=== PATIENT | female | born 1990 | race Caucasian/White ===

== ENCOUNTER 2018-05-18 11:53 | Inpatient (IN) | payer BC ==
[2018-05-18] MEDS ORDERED: Nalbuphine 20 MG/ML 1 ML Syringe IVPUSH PRN (12:45)
[2018-05-18] MEDS ORDERED: Oxytocin/Lactated Ringers 10 UNIT/1,000 ML BAG IV SCH ×2 (12:45→13:00)
[2018-05-18] MEDS ORDERED: Sodium Chloride 0.9% 10 ML Syringe FLUSH PRN (12:45)
[2018-05-18] MEDS ORDERED: Ondansetron 4 MG/2 ML SDV IVPUSH PRN (12:45)
[2018-05-18] MEDS: Lactated Ringers 1,000 ML IV SCH ×2 (14:12→17:34)
[2018-05-18] MEDS ORDERED: fentaNYL 100 MCG/2 ML SDV EPIDUR PRN (17:22)
[2018-05-18] MEDS ORDERED: ePHEDrine 50 MG/ML SDV IVPUSH PRN (17:22)
[2018-05-18] MEDS ORDERED: diphenhydrAMINE 50 MG/ML SDV IVPUSH PRN (17:22)
[2018-05-18] MEDS ORDERED: fentaNYL 100 MCG/2 ML SDV ONE (17:29)
[2018-05-18] MEDS ORDERED: fentaNYL/Bupivacaine-NS 2 MCG/ML-0.125%/PF 100 ML Bag EPIDUR SCH (17:30)
--- NOTE | 2018-05-18 17:56 | PCM.PREANE ---
Preanesthetic Assessment - Anesthesia/Transfusion/Family Hx Anesthesia History: Prior Anesthesia Without Reaction Family History of Anesthesia Reaction: No Transfusion History: No Prior Transfusion(s) - Review of Systems General: Fatigue Pulmonary: No Symptoms Cardiovascular: No Symptoms Gastrointestinal: Abdominal Pain (LABOR CRAMPING) Neurological: No Symptoms Other: Reports: None - Physical Assessment Pulse: 105 O2 Sat by Pulse Oximetry: 97 Respiratory Rate: 16 Blood Pressure: 110/85 Temperature: 36.3 C Vital Signs: Last Vital Signs Temp 37.4 C 05/18/18 12:45 Pulse 105 H 05/18/18 12:45 Resp 16 05/18/18 12:45 BP 110/85 05/18/18 12:45 Pulse Ox Height: 1.73 m Weight: 87.997 kg ASA Class: 2 Mental Status: Alert & Oriented x3 Airway Class: Mallampati = 1 Dentition: Reports: Normal Dentition Thyro-Mental Finger Breadths: 3 Mouth Opening Finger Breadths: 3 ROM/Head Extension: Full Lungs: Clear to Auscultation, Normal Respiratory Effort Cardiovascular: Regular Rate, Regular Rhythm - Lab Values: Laboratory Last Values WBC 8.63 K/mm3 (3.98-10.04) 05/18/18 12:59 RBC 4.12 M/mm3 (3.98-5.22) 05/18/18 12:59 Hgb 11.9 gm/L (11.2-15.7) 05/18/18 12:59 Hct 36.2 % (34.1-44.9) 05/18/18 12:59 MCV 87.9 fl (79.4-94.8) 05/18/18 12:59 MCH 28.9 pg (25.6-32.2) 05/18/18 12:59 MCHC 32.9 g/dl (32.2-35.5) 05/18/18 12:59 RDW Std Deviation 38.8 fL (36.4-46.3) 05/18/18 12:59 Plt Count 251 K/mm3 (182-369) 05/18/18 12:59 MPV 10.4 fl (9.4-12.3) 05/18/18 12:59 RPR Non-reactive (NONREACTIVE) 05/18/18 12:59 - Allergies Allergies/Adverse Reactions: Allergies Allergy/AdvReac Type Severity Reaction Status Date / Time No Known Allergies Allergy Verified 04/26/18 15:48 - Anesthesia Plan Pre-Op Medication Ordered: None - Acknowledgements Anesthesia Type Planned: Epidural Pt an Appropriate Candidate for the Planned Anesthesia: Yes Alternatives and Risks of Anesthesia Discussed w Pt/Guardian: Yes Pt/Guardian Understands and Agrees with Anesthesia Plan: Yes PreAnesthesia Questionnaire - Past Health History Medical/Surgical History: Denies Medical/Surgical History [employer] History: Reports: Polycystic Ovaries - Past Surgical History GI Surgical History: Reports: Other (See Below) Other GI Surgeries/Procedures: gastric sleeve surgery 1 year ago. - SUBSTANCE USE Smoking Status *Q: Never Smoker Second Hand Smoke Exposure: No Recreational Drug Use History: No - HOME MEDS Home Medications: Home Meds PNV95/Ferrous Fumarate/FA [ Tablet] 1 each PO DAILY 05/18/18 [History] - CURRENT (IN HOUSE) MEDS Current Meds: Current Medications Diphenhydramine HCl (Benadryl) 25 mg IVPUSH Q6H PRN PRN Reason: Itching Ephedrine Sulfate (Ephedrine Sulfate) 5 mg IVPUSH ASDIRECTED PRN PRN Reason: HYPOTENTSION Fentanyl (Sublimaze) 100 mcg EPIDUR Q3H PRN PRN Reason: Pain Last Admin: 05/18/18 17:49 Dose: 100 mcg Fentanyl/Bupivacaine HCl (Abiyeejf-Tpjrg-Cc 2 Mcg/Ml-0.125%) 100 ml EPIDUR ASDIRECTED DAYSI Last Admin: 05/18/18 17:50 Dose: 100 ml Lactated Ringer's (Ringers, Lactated) 1,000 mls @ 100 mls/hr IV ASDIRECTED DAYSI Last Admin: 05/18/18 17:34 Dose: 100 mls/hr Oxytocin/Lactated Ringer's (Pitocin In Lr 10 Units/1,000 Ml) 10 unit in 1,000 mls @ 500 mls/hr IV .CONTINUOUS DAYSI Oxytocin/Lactated Ringer's (Pitocin In Lr 10 Units/1,000 Ml) 10 unit in 1,000 mls @ 12 mls/hr IV TITRATE DAYSI; Protocol Last Titration: 05/18/18 16:17 Dose: 7 munits/min, 42 mls/hr Nalbuphine HCl (Nubain) 10 mg IVPUSH Q2H PRN PRN Reason: pain Ondansetron HCl (Zofran) 4 mg IVPUSH Q4H PRN PRN Reason: Nausea/Vomiting Sodium Chloride (Saline Flush) 10 ml FLUSH ASDIRECTED PRN PRN Reason: Keep Vein Open Discontinued Medications Fentanyl (Sublimaze) Confirm Administered Dose 100 mcg .ROUTE .AirPlug-MED ONE Stop: 05/18/18 17:30
[2018-05-18] MEDS ORDERED: Bupivacaine 0.25% 10 ML SDV ONE (18:00)
--- NOTE | 2018-05-18 21:14 | PCM.LDHP ---
L&D History of Present Illness - General Date of Service: 05/18/18 Admit Problem/Dx: Patient Status Order with Admit Dx/Problem 05/18/18 12:46 Patient Status [ADT] Routine Admission Diagnosis/Problem Admission Diagnosis/Problem Source of Information: Patient, Old Records - History of Present Illness Introduction:: 28 year old at 39w4d here for elective IOL (also lives remote from hospital ) PNC with myself complicated by recent gastric sleeve - normal labs and growth. Pain Score: 10 Improves with: Reports: None Worsens with: Reports: None Associated Symptoms: Reports: N - Related Data Allergies/Adverse Reactions: Allergies Allergy/AdvReac Type Severity Reaction Status Date / Time No Known Allergies Allergy Verified 04/26/18 15:48 Home Medications: Home Meds PNV95/Ferrous Fumarate/FA [ Tablet] 1 each PO DAILY 05/18/18 [History] Past Medical History - Past Health History Medical/Surgical History: Denies Medical/Surgical History [employer] History: Reports: Polycystic Ovaries - Past Surgical History GI Surgical History: Reports: Other (See Below) Other GI Surgeries/Procedures: gastric sleeve surgery 1 year ago. Social & Family History - Tobacco Use Smoking Status *Q: Never Smoker Second Hand Smoke Exposure: No - Caffeine Use Caffeine Use: Reports: Coffee - Recreational Drug Use Recreational Drug Use: No H&P Review of Systems - Review of Systems: Review Of Systems: See Below General: Reports: No Symptoms HEENT: Reports: No Symptoms Pulmonary: Reports: No Symptoms Cardiovascular: Reports: No Symptoms Gastrointestinal: Reports: No Symptoms Genitourinary: Reports: No Symptoms Musculoskeletal: Reports: No Symptoms Skin: Reports: No Symptoms Psychiatric: Reports: No Symptoms Neurological: Reports: No Symptoms Hematologic/Lymphatic: Reports: No Symptoms Immunologic: Reports: No Symptoms L&D Exam - Exam Exam: See Below - Vital Signs Vital Signs: Last Vital Signs Temp 36.3 C 05/18/18 17:56 Pulse 105 H 05/18/18 17:56 Resp 16 05/18/18 17:56 BP 110/85 05/18/18 17:56 Pulse Ox 97 05/18/18 17:56 Weight: 87.997 kg - OB Specific Contraction Intensity: Irritability Movement: Active Heart Tones: Present Heart Rate (FHR) Variability: Moderate (6-25 bmp) Presentation: Vertex Estimated Weight: 3000 - Albright Score Albright Score Cervix Position: Midposition Albright Score Consistency: Soft Albright Score Effacement: >80% Albright Score Dilation: 3-4 cm Albright Score 's Station: -1 ,0 Albright Score Total: 10 - Exam General: Alert, Oriented HEENT: PERRLA, Conjunctiva Clear, EACs Clear, EOMI, Hearing Intact, Mucosa Moist & Rosa Sanchez, Nares Patent, Normal Nasal Septum, Posterior Pharynx Clear, TMs Clear Neck: Supple, Trachea Midline Lungs: Clear to Auscultation, Normal Respiratory Effort Cardiovascular: Regular Rate, Regular Rhythm GI/Abdominal Exam: Normal Bowel Sounds, Soft, Non-Tender, No Organomegaly, No Distention, No Abnormal Bruit, No Mass, Pelvis Stable Genitourinary: Normal external exam, Normal bimanual exam Back Exam: Normal Inspection, Full Range of Motion Extremities: Normal Inspection, Normal Range of Motion, Non-Tender, No Pedal Edema, Normal Capillary Refill Skin: Warm, Dry, Intact Neurological: Cranial Nerves Intact, Reflexes Equal Bilateral Psychiatric: Alert, Normal Affect, Normal Mood - Patient Data Lab Results Last 24 hrs: Laboratory Results - last 24 hr 05/18/18 05/18/18 Range/Units 12:59 12:59 WBC 8.63 (3.98-10.04) K/mm3 RBC 4.12 (3.98-5.22) M/mm3 Hgb 11.9 (11.2-15.7) gm/L Hct 36.2 (34.1-44.9) % MCV 87.9 (79.4-94.8) fl MCH 28.9 (25.6-32.2) pg MCHC 32.9 (32.2-35.5) g/dl RDW Std Deviation 38.8 (36.4-46.3) fL Plt Count 251 (182-369) K/mm3 MPV 10.4 (9.4-12.3) fl RPR Non-reactive (NONREACTIVE) Result Diagrams: 05/18/18 12:59 Problem List Initiated/Reviewed/Updated: Yes Orders Last 24hrs: Active Orders 24 hr Category Date Time Status Patient Status [ADT] Routine ADT 05/18/18 12:46 Active Activity as Tolerated [RC] PFP Care 05/18/18 12:45 Active Communication Order [RC] ASDIRECTED Care 05/18/18 12:45 Active Communication Order [RC] ASDIRECTED Care 05/18/18 17:22 Active Cooling Warming Measures [RC] ASDIRECTED Care 05/18/18 17:22 Active Heart Tones [RC] ASDIRECTED Care 05/18/18 12:46 Active Non Stress Test [RC] PER UNIT ROUTINE Care 05/18/18 12:45 Active Notify Provider [RC] ASDIRECTED Care 05/18/18 17:22 Active Notify Provider [RC] PFP Care 05/18/18 12:45 Active Notify Provider [RC] PRN Care 05/18/18 12:45 Active Oxygen Therapy [RC] ASDIRECTED Care 05/18/18 17:22 Active Peripheral IV Care [RC] . DIRECTED Care 05/18/18 12:46 Active Pulse Oximetry [RC] ASDIRECTED Care 05/18/18 17:22 Active Verify Patient Consent Obtain [RC] ASDIRECTED Care 05/18/18 17:22 Active Vital Signs [RC] PER UNIT ROUTINE Care 05/18/18 12:45 Active Vital Signs [RC] Q1H Care 05/18/18 17:22 Active Regular Diet [DIET] Diet 05/18/18 Lunch Active Lactated Ringers [Ringers, Lactated] 1,000 ml Med 05/18/18 12:45 Active IV ASDIRECTED Nalbuphine [Nubain] Med 05/18/18 12:45 Active 10 mg IVPUSH Q2H PRN Ondansetron [Zofran] Med 05/18/18 12:45 Active 4 mg IVPUSH Q4H PRN Oxytocin/Lactated Ringers [Pitocin in LR 10 Units/1,000 Med 05/18/18 12:45 Active ML] 10 unit in 1,000 ml IV .CONTINUOUS Oxytocin/Lactated Ringers [Pitocin in LR 10 Units/1,000 Med 05/18/18 13:00 Active ML] 10 unit in 1,000 ml IV TITRATE Sodium Chloride 0.9% [Saline Flush] Med 05/18/18 12:45 Active 10 ml FLUSH ASDIRECTED PRN diphenhydrAMINE [Benadryl] Med 05/18/18 17:22 Active 25 mg IVPUSH Q6H PRN ePHEDrine [ePHEDrine sulfate] Med 05/18/18 17:22 Active 5 mg IVPUSH ASDIRECTED PRN fentaNYL [Sublimaze] Med 05/18/18 17:22 Active 100 mcg EPIDUR Q3H PRN fentaNYL/Bupivacaine/NS/PF [lvzkwCJL-Puzme-EB 2 MCG/ML- Med 05/18/18 17:30 Active 0.125%] 100 ml EPIDUR ASDIRECTED Electronic Heart Tones Ext w TOCO [WOMSER] Oth 05/18/18 12:45 Ordered Routine Electronic Heart Tones Internal [WOMSER] Per Unit Oth 05/18/18 12:45 Ordered Routine Peripheral IV Insertion Adult [OM.PC] Routine Oth 05/18/18 12:45 Ordered Resuscitation Status Routine Resus Stat 05/18/18 12:45 Ordered Medication Orders Diphenhydramine HCl (Benadryl) 25 mg IVPUSH Q6H PRN PRN Reason: Itching Ephedrine Sulfate (Ephedrine Sulfate) 5 mg IVPUSH ASDIRECTED PRN PRN Reason: HYPOTENTSION Fentanyl (Sublimaze) 100 mcg EPIDUR Q3H PRN PRN Reason: Pain Last Admin: 05/18/18 17:49 Dose: 100 mcg Fentanyl/Bupivacaine HCl (Coksropo-Gsnxb-Mb 2 Mcg/Ml-0.125%) 100 ml EPIDUR ASDIRECTED DAYSI Last Admin: 05/18/18 17:50 Dose: 100 ml Lactated Ringer's (Ringers, Lactated) 1,000 mls @ 100 mls/hr IV ASDIRECTED DAYSI Last Admin: 05/18/18 17:34 Dose: 100 mls/hr Infusion: 05/18/18 17:34 Dose: 100 mls/hr Admin: 05/18/18 14:12 Dose: 100 mls/hr Oxytocin/Lactated Ringer's (Pitocin In Lr 10 Units/1,000 Ml) 10 unit in 1,000 mls @ 500 mls/hr IV .CONTINUOUS DAYSI Oxytocin/Lactated Ringer's (Pitocin In Lr 10 Units/1,000 Ml) 10 unit in 1,000 mls @ 12 mls/hr IV TITRATE DAYSI; Protocol Last Titration: 05/18/18 19:12 Dose: 6 munits/min, 36 mls/hr Titration: 05/18/18 18:26 Dose: 5 munits/min, 30 mls/hr Titration: 05/18/18 16:17 Dose: 7 munits/min, 42 mls/hr Titration: 05/18/18 15:48 Dose: 6 munits/min, 36 mls/hr Titration: 05/18/18 15:20 Dose: 5 munits/min, 30 mls/hr Titration: 05/18/18 14:47 Dose: 4 munits/min, 24 mls/hr Admin: 05/18/18 14:13 Dose: 2 munits/min, 12 mls/hr Nalbuphine HCl (Nubain) 10 mg IVPUSH Q2H PRN PRN Reason: pain Ondansetron HCl (Zofran) 4 mg IVPUSH Q4H PRN PRN Reason: Nausea/Vomiting Sodium Chloride (Saline Flush) 10 ml FLUSH ASDIRECTED PRN PRN Reason: Keep Vein Open Assessment/Plan Comment:: Term induction. AROM clear fluid. Pitocin if no regular contractions after AROM Anesthesia per pt request. Anticipate
--- NOTE | 2018-05-18 21:15 | PCM.PNLD ---
Labor Progress Note - VS & Meds Vital Signs: Last Vital Signs Temp 36.3 C 05/18/18 17:56 Pulse 105 H 05/18/18 17:56 Resp 16 05/18/18 17:56 BP 110/85 05/18/18 17:56 Pulse Ox 97 05/18/18 17:56 Active Medications: Current Medications Diphenhydramine HCl (Benadryl) 25 mg IVPUSH Q6H PRN PRN Reason: Itching Ephedrine Sulfate (Ephedrine Sulfate) 5 mg IVPUSH ASDIRECTED PRN PRN Reason: HYPOTENTSION Fentanyl (Sublimaze) 100 mcg EPIDUR Q3H PRN PRN Reason: Pain Last Admin: 05/18/18 17:49 Dose: 100 mcg Fentanyl/Bupivacaine HCl (Bhzkskmd-Ztblj-Fw 2 Mcg/Ml-0.125%) 100 ml EPIDUR ASDIRECTED DAYSI Last Admin: 05/18/18 17:50 Dose: 100 ml Lactated Ringer's (Ringers, Lactated) 1,000 mls @ 100 mls/hr IV ASDIRECTED DAYSI Last Admin: 05/18/18 17:34 Dose: 100 mls/hr Oxytocin/Lactated Ringer's (Pitocin In Lr 10 Units/1,000 Ml) 10 unit in 1,000 mls @ 500 mls/hr IV .CONTINUOUS DAYSI Oxytocin/Lactated Ringer's (Pitocin In Lr 10 Units/1,000 Ml) 10 unit in 1,000 mls @ 12 mls/hr IV TITRATE DAYSI; Protocol Last Titration: 05/18/18 19:12 Dose: 6 munits/min, 36 mls/hr Nalbuphine HCl (Nubain) 10 mg IVPUSH Q2H PRN PRN Reason: pain Ondansetron HCl (Zofran) 4 mg IVPUSH Q4H PRN PRN Reason: Nausea/Vomiting Sodium Chloride (Saline Flush) 10 ml FLUSH ASDIRECTED PRN PRN Reason: Keep Vein Open Discontinued Medications Fentanyl (Sublimaze) Confirm Administered Dose 100 mcg .ROUTE .STK-MED ONE Stop: 05/18/18 17:30 - Uterine Contractions Uterine Monitoring Mode: External [place] Contraction Intensity: Moderate to Strong Uterine Resting Tone: Soft - Monitoring Monitor Mode: External Ultrasound Heart Rate (FHR) Baseline: 145 Heart Rate (FHR) Variability: Moderate (6-25 bmp) Accelerations: Present, 15x15 Decelerations: None Strip Review: Category I - Vaginal Exam Dilation (cm): 4 Effacement (Percent): 100 Station: 1 Cervical Position: Anterior Sterile Vaginal Exam Performed By: Anahi Self - Labor Progress (Free Text) Labor Progress: Patient increasingly uncomfortable. Requesting epidural Good progress
--- NOTE | 2018-05-18 21:19 | PCM.SN ---
- Free Text/Narrative Note: Stage I - Patient presented for induction of labor. AROM clear fluid. Pitocin. Epidural for anesthesia. Progressed to complete with overall reassuring FHT. Stage II - of viable female, weight 7#2oz, APGARS 8/9 at 2052. Head delivered in controlled manner over intact perineum. Body and shoulders followed without difficulty. Baby to maternal abdomen. Positive cry. Cord clamped and cut after approximately 5 minutes. Stage III - of intact placenta, 3vc. Small side wall laceration at hymen repaired with one figure of eight suture of 3-0 vicryl. EBL 200.
[2018-05-18] MEDS ORDERED: Witch Hazel Medicated Pads 40/Jar TOP PRN (21:56)
[2018-05-18] MEDS ORDERED: Benzocaine/Menthol 20%-0.5% Spray 56 GM Canister TOP PRN (21:57)
--- NOTE | 2018-05-19 08:08 | PCM.PNPP ---
- General Info Date of Service: 05/19/18 Subjective Update: day one. Doing great. Minimal pain. Bleeding moderate. Functional Status: Reports: Pain Controlled - Review of Systems General: Reports: No Symptoms HEENT: Reports: No Symptoms Pulmonary: Reports: No Symptoms Cardiovascular: Reports: No Symptoms Gastrointestinal: Reports: No Symptoms Genitourinary: Reports: No Symptoms Musculoskeletal: Reports: No Symptoms Skin: Reports: No Symptoms Neurological: Reports: No Symptoms Psychiatric: Reports: No Symptoms - General Info Date of Service: 05/19/18 - Patient Data Vital Signs - Most Recent: Last Vital Signs Temp 37.2 C 05/18/18 23:57 Pulse 66 05/18/18 23:57 Resp 16 05/18/18 23:57 BP 118/69 05/18/18 23:57 Pulse Ox 98 05/18/18 23:57 Weight - Most Recent: 87.997 kg I&O - Last 24 Hours: Intake & Output 05/18/18 05/19/18 05/19/18 22:59 06:59 14:59 Intake Total 1999 Balance 1999 Lab Results - Last 24 Hours: Laboratory Results - last 24 hr 05/18/18 05/18/18 Range/Units 12:59 12:59 WBC 8.63 (3.98-10.04) K/mm3 RBC 4.12 (3.98-5.22) M/mm3 Hgb 11.9 (11.2-15.7) gm/L Hct 36.2 (34.1-44.9) % MCV 87.9 (79.4-94.8) fl MCH 28.9 (25.6-32.2) pg MCHC 32.9 (32.2-35.5) g/dl RDW Std Deviation 38.8 (36.4-46.3) fL Plt Count 251 (182-369) K/mm3 MPV 10.4 (9.4-12.3) fl RPR Non-reactive (NONREACTIVE) Med Orders - Current: Current Medications Benzocaine/Menthol (Dermoplast Pain Relief [place]) 1 gm TOP ASDIRECTED PRN PRN Reason: Pain Last Admin: 05/18/18 23:07 Dose: 1 can Diphenhydramine HCl (Benadryl) 25 mg IVPUSH Q6H PRN PRN Reason: Itching Ephedrine Sulfate (Ephedrine Sulfate) 5 mg IVPUSH ASDIRECTED PRN PRN Reason: HYPOTENTSION Fentanyl (Sublimaze) 100 mcg EPIDUR Q3H PRN PRN Reason: Pain Last Admin: 05/18/18 17:49 Dose: 100 mcg Fentanyl/Bupivacaine HCl (Olfjppsv-Nsogo-Lk 2 Mcg/Ml-0.125%) 100 ml EPIDUR ASDIRECTED DAYSI Last Admin: 05/18/18 17:50 Dose: 100 ml Lactated Ringer's (Ringers, Lactated) 1,000 mls @ 100 mls/hr IV ASDIRECTED DAYSI Last Admin: 05/18/18 17:34 Dose: 100 mls/hr Oxytocin/Lactated Ringer's (Pitocin In Lr 10 Units/1,000 Ml) 10 unit in 1,000 mls @ 500 mls/hr IV .CONTINUOUS DAYSI Oxytocin/Lactated Ringer's (Pitocin In Lr 10 Units/1,000 Ml) 10 unit in 1,000 mls @ 12 mls/hr IV TITRATE DAYSI; Protocol Last Titration: 05/18/18 19:12 Dose: 6 munits/min, 36 mls/hr Nalbuphine HCl (Nubain) 10 mg IVPUSH Q2H PRN PRN Reason: pain Ondansetron HCl (Zofran) 4 mg IVPUSH Q4H PRN PRN Reason: Nausea/Vomiting Sodium Chloride (Saline Flush) 10 ml FLUSH ASDIRECTED PRN PRN Reason: Keep Vein Open Witch Roro (Tucks) 1 pad TOP ASDIRECTED PRN PRN Reason: Pain Last Admin: 05/18/18 23:07 Dose: 1 bottle Discontinued Medications Fentanyl (Sublimaze) Confirm Administered Dose 100 mcg .ROUTE .STSpinal Restoration-MED ONE Stop: 05/18/18 17:30 - Infant Interaction Infant Disposition, : in Room with Family Support Person: Significant Other - Recovery Exam Fundal Tone: Firm Fundal Level: 1 Fingerbreadths Below Umbilicus Fundal Placement: Midline Lochia Amount: Small Lochia Color: Rubra/Red Perineum Description: Intact, Minimal Bruising/Swelling Episiotomy/Laceration: Approximated Bladder Status: Voiding Urinary Elimination: Voided - Exam General: Alert, Oriented HEENT: Pupils Equal Neck: Supple Lungs: Clear to Auscultation, Normal Respiratory Effort Cardiovascular: Regular Rate, Regular Rhythm GI/Abdominal Exam: Soft, Non-Tender, No Organomegaly, No Distention Extremities: Normal Inspection, Normal Range of Motion, Non-Tender, No Pedal Edema, Normal Capillary Refill Skin: Warm, Dry, Intact Neurological: No New Focal Deficit Psy/Mental Status: Alert, Normal Affect, Normal Mood - Problem List Review Problem List Initiated/Reviewed/Updated: Yes - My Orders Last 24 Hours: My Active Orders 05/18/18 12:45 Activity as Tolerated [RC] PFP Communication Order [RC] ASDIRECTED Notify Provider [RC] PFP Notify Provider [RC] PRN Vital Signs [RC] 03,09,15,21 Lactated Ringers [Ringers, Lactated] 1,000 ml IV ASDIRECTED Nalbuphine [Nubain] 10 mg IVPUSH Q2H PRN Ondansetron [Zofran] 4 mg IVPUSH Q4H PRN Oxytocin/Lactated Ringers [Pitocin in LR 10 Units/1,000 ML] 10 unit in 1,000 ml IV .CONTINUOUS Sodium Chloride 0.9% [Saline Flush] 10 ml FLUSH ASDIRECTED PRN Electronic Heart Tones Ext w TOCO [WOMSER] Routine Electronic Heart Tones Internal [WOMSER] Per Unit Routine Peripheral IV Insertion Adult [OM.PC] Routine Resuscitation Status Routine 05/18/18 12:46 Patient Status [ADT] Routine 05/18/18 13:00 Oxytocin/Lactated Ringers [Pitocin in LR 10 Units/1,000 ML] 10 unit in 1,000 ml IV TITRATE 05/18/18 21:56 Witch Roro [Tucks] 1 pad TOP ASDIRECTED PRN 05/18/18 21:57 Benzocaine/Menthol [Dermoplast Pain Relief [place]] 1 gm TOP ASDIRECTED PRN 05/18/18 Lunch Regular Diet [DIET] 05/19/18 08:02 Patient Status Manage Transfer [TRANSFER] Routine - Assessment Assessment:: PPD1 Doing great. Minimal pain. Moderate lochia. Probable discharge tomorrow.
--- NOTE | 2018-05-19 09:59 | PCM48HPAN ---
Post Anesthesia Note - EVALUATION WITHIN 48HRS OF ANESTHETIC Vital Signs in Normal Range: Yes Patient Participated in Evaluation: Yes Respiratory Function Stable: Yes Airway Patent: Yes Cardiovascular Function Stable: Yes Hydration Status Stable: Yes Pain Control Satisfactory: Yes Nausea and Vomiting Control Satisfactory: Yes Mental Status Recovered: Yes Pulse Rate: 66 Resp Rate: 16 Temperature: 37.2 C Blood Pressure: 118/69 - COMMENTS/OBSERVATIONS Free Text/Narrative:: no anesthesia complications noted
[2018-05-19] MEDS ORDERED: Ibuprofen 600 MG Tab PO PRN (12:58)
[2018-05-19] MEDS ORDERED: Benzocaine/Menthol 20%-0.5% Spray 56 GM Canister TOP PRN (12:58)
[2018-05-19] MEDS ORDERED: Docusate Sodium 100 MG Cap PO PRN (12:58)
[2018-05-19] MEDS ORDERED: Acetaminophen 325 MG Tab PO PRN (12:58)
[2018-05-19] MEDS ORDERED: Witch Hazel Medicated Pads 40/Jar TOP PRN (12:58)
--- NOTE | 2018-05-20 04:41 | PCM.DCSUM1 ---
Discharge Summary - Hospital Course Diagnosis: Stroke: No - Discharge Data Discharge Date: 05/20/18 Discharge Disposition: Home, Self-Care 01 Condition: Good - Patient Instructions Diet: Usual Diet as Tolerated Activity: No Strenuous Activities Driving: May Drive Today Showering/Bathing: May Shower Notify Provider of: Fever, Increased Pain, Swelling and Redness, Drainage, Nausea and/or Vomiting - Discharge Plan *PRESCRIPTION DRUG MONITORING PROGRAM REVIEWED*: No *COPY OF PRESCRIPTION DRUG MONITORING REPORT IN PATIENT LUIZ: Not Applicable Home Medications: Home Meds PNV95/Ferrous Fumarate/FA [ Tablet] 1 each PO DAILY 05/18/18 [History] Referrals: Sneha Da Silva MD [Primary Care Provider] - (2-6 weeks) - Discharge Summary/Plan Comment DC Time >30 min.: No - General Info Date of Service: 05/20/18 Functional Status: Reports: Pain Controlled - Review of Systems General: Reports: No Symptoms HEENT: Reports: No Symptoms Pulmonary: Reports: No Symptoms Cardiovascular: Reports: No Symptoms Gastrointestinal: Reports: No Symptoms Genitourinary: Reports: No Symptoms Musculoskeletal: Reports: No Symptoms Skin: Reports: No Symptoms Neurological: Reports: No Symptoms Psychiatric: Reports: No Symptoms - Patient Data Vitals - Most Recent: Last Vital Signs Temp 36.9 C 05/19/18 19:47 Pulse 64 05/19/18 19:47 Resp 15 05/19/18 19:47 BP 117/75 05/19/18 19:47 Pulse Ox 99 05/19/18 19:47 Weight - Most Recent: 87.997 kg Med Orders - Current: Current Medications Acetaminophen (Tylenol) 650 mg PO Q6H PRN PRN Reason: mild pain or fever Benzocaine/Menthol (Dermoplast Pain Relief [place]) 0 gm TOP ASDIRECTED PRN PRN Reason: Perineal Comfort Measure Docusate Sodium (Colace) 100 mg PO BID PRN PRN Reason: Constipation Ibuprofen (Motrin) 600 mg PO Q6H PRN PRN Reason: Mild pain or fever Last Admin: 05/19/18 21:59 Dose: 600 mg Witch Roro (Tucks) 1 pad TOP ASDIRECTED PRN PRN Reason: Pain Discontinued Medications Benzocaine/Menthol (Dermoplast Pain Relief [place]) 1 gm TOP ASDIRECTED PRN PRN Reason: Pain Last Admin: 05/18/18 23:07 Dose: 1 can Diphenhydramine HCl (Benadryl) 25 mg IVPUSH Q6H PRN PRN Reason: Itching Ephedrine Sulfate (Ephedrine Sulfate) 5 mg IVPUSH ASDIRECTED PRN PRN Reason: HYPOTENTSION Fentanyl (Sublimaze) 100 mcg EPIDUR Q3H PRN PRN Reason: Pain Last Admin: 05/18/18 17:49 Dose: 100 mcg Fentanyl (Sublimaze) Confirm Administered Dose 100 mcg .ROUTE .STK-MED ONE Stop: 05/18/18 17:30 Last Admin: 05/19/18 14:39 Dose: Not Given Fentanyl/Bupivacaine HCl (Cohzmnvw-Bavbe-Es 2 Mcg/Ml-0.125%) 100 ml EPIDUR ASDIRECTED DAYSI Last Admin: 05/18/18 17:50 Dose: 100 ml Lactated Ringer's (Ringers, Lactated) 1,000 mls @ 100 mls/hr IV ASDIRECTED DAYSI Last Admin: 05/18/18 17:34 Dose: 100 mls/hr Oxytocin/Lactated Ringer's (Pitocin In Lr 10 Units/1,000 Ml) 10 unit in 1,000 mls @ 500 mls/hr IV .CONTINUOUS DAYSI Oxytocin/Lactated Ringer's (Pitocin In Lr 10 Units/1,000 Ml) 10 unit in 1,000 mls @ 12 mls/hr IV TITRATE DAYSI; Protocol Last Titration: 05/18/18 19:12 Dose: 6 munits/min, 36 mls/hr Nalbuphine HCl (Nubain) 10 mg IVPUSH Q2H PRN PRN Reason: pain Ondansetron HCl (Zofran) 4 mg IVPUSH Q4H PRN PRN Reason: Nausea/Vomiting Sodium Chloride (Saline Flush) 10 ml FLUSH ASDIRECTED PRN PRN Reason: Keep Vein Open Witch Roro (Tucks) 1 pad TOP ASDIRECTED PRN PRN Reason: Pain Last Admin: 05/18/18 23:07 Dose: 1 bottle - Exam General: Reports: Alert, Oriented HEENT: Reports: Pupils Equal, Pupils Reactive, EOMI, Mucous Membr. Moist/[place] Neck: Reports: Supple Lungs: Reports: Clear to Auscultation, Normal Respiratory Effort Cardiovascular: Reports: Regular Rate, Regular Rhythm GI/Abdominal Exam: Normal Bowel Sounds, Soft, Non-Tender, No Organomegaly, No Distention, No Abnormal Bruit, No Mass, Pelvis Stable Rectal (Female) Exam: Normal Exam, Normal Rectal Tone Back Exam: Reports: Normal Inspection, Full Range of Motion Extremities: Normal Inspection, Normal Range of Motion, Non-Tender, No Pedal Edema, Normal Capillary Refill Skin: Reports: Warm, Dry, Intact Wound/Incisions: Reports: Healing Well Neurological: Reports: No New Focal Deficit Psy/Mental Status: Reports: Alert, Normal Affect, Normal Mood
== END 2018-05-20 10:15 | disposition home or self-care (01) | DRG 560 ==
LOC: JD.OB 11:53 → JD.OBCHECK 11:53 → JD.OB 12:46 → OBSVTOIN 20:53 → JD.OB 20:54
PROVIDERS: ADMIT Obstetrics & Gynecology; ATTEND Obstetrics & Gynecology
PROC: 3E033VJ Introduction of Other Hormone into Peripheral Vein, Percutaneous Approach (ICD-10-PCS; principal; 2018-05-18)
PROC: 10E0XZZ Delivery of Products of Conception, External Approach (ICD-10-PCS; principal; 2018-05-18)
PROC: 0UQKXZZ Repair Hymen, External Approach (ICD-10-PCS; principal; 2018-05-18)
PROC: 10907ZC Drainage of Amniotic Fluid, Therapeutic from Products of Conception, Via Natural or Artificial Opening (ICD-10-PCS; principal; 2018-05-18)
PROC: 00HU33Z Insertion of Infusion Device into Spinal Canal, Percutaneous Approach (ICD-10-PCS; 2018-05-18)
PROC: 3E0R3BZ Introduction of Anesthetic Agent into Spinal Canal, Percutaneous Approach (ICD-10-PCS; 2018-05-18)
DX: O99.844 Bariatric surgery status complicating childbirth (principal); Z3A.39 39 weeks gestation of pregnancy; Z37.0 Single live birth; O99.284 Endocrine, nutritional and metabolic diseases complicating childbirth; E28.2 Polycystic ovarian syndrome; O70.0 First degree perineal laceration during delivery
CPT/HCPCS: 36415; 51702; 59025; 59409; 85027; 86592; A9270-GY; J2590; J3010; J3490; J7120

== ENCOUNTER 2019-06-18 20:02 | Inpatient (IN) | payer BC ==
[~2019-06-18 20:02] MED LIST: Bupivacaine 0.25% 10 ML SDV ONE
[2019-06-18] MEDS ORDERED: Ondansetron 4 MG/2 ML SDV IVPUSH PRN (20:43)
[2019-06-18] MEDS ORDERED: Nalbuphine 10 MG/ML Syringe IVPUSH PRN (20:43)
[2019-06-18] MEDS ORDERED: Acetaminophen 325 MG Tab PO PRN (20:43)
[2019-06-18] MEDS ORDERED: Sodium Chloride 0.9% 10 ML Syringe FLUSH PRN (20:43)
[2019-06-18] MEDS ORDERED: Calcium Carbonate 500 MG Tab.Chew PO PRN (20:43)
[2019-06-18] MEDS ORDERED: Oxytocin/Lactated Ringers 10 UNIT/1,000 ML BAG IV SCH ×2 (20:45)
[2019-06-18] MEDS: Lactated Ringers 1,000 ML IV SCH ×4 (22:15→23:30)
[2019-06-18] MEDS ORDERED: fentaNYL 100 MCG/2 ML SDV EPIDUR PRN (22:15)
[2019-06-18] MEDS ORDERED: ePHEDrine 50 MG/ML SDV IVPUSH PRN (22:15)
[2019-06-18] MEDS ORDERED: Bupivacaine/fentaNYL/NS 100 ML Bag EPIDUR PRN (22:15)
[2019-06-18] MEDS ORDERED: diphenhydrAMINE 50 MG/ML SDV IVPUSH PRN (22:15)
--- NOTE | 2019-06-18 22:47 | PCM.PREANE ---
Preanesthetic Assessment - Procedure Proposed Procedure: epidural - Anesthesia/Transfusion/Family Hx Anesthesia History: Prior Anesthesia Without Reaction Family History of Anesthesia Reaction: No Transfusion History: No Prior Transfusion(s) - Review of Systems General: Fatigue Pulmonary: No Symptoms Cardiovascular: No Symptoms Gastrointestinal: Abdominal Pain (labor) Neurological: No Symptoms Other: Reports: None - Physical Assessment Vital Signs: Last Vital Signs Temp 37.2 C 06/18/19 20:44 Pulse 78 06/18/19 20:44 Resp 14 06/18/19 20:44 BP 109/71 06/18/19 20:44 Pulse Ox 98 06/18/19 20:44 Height: 1.73 m Weight: 87.861 kg ASA Class: 2 Mental Status: Alert & Oriented x3 Airway Class: Mallampati = 1 Dentition: Reports: Normal Dentition Thyro-Mental Finger Breadths: 3 Mouth Opening Finger Breadths: 3 ROM/Head Extension: Full Lungs: Clear to Auscultation, Normal Respiratory Effort Cardiovascular: Regular Rate, Regular Rhythm - Lab Values: Laboratory Last Values WBC 12.32 K/mm3 (3.98-10.04) H 06/18/19 21:08 RBC 4.03 M/mm3 (3.98-5.22) 06/18/19 21:08 Hgb 10.1 gm/dl (11.2-15.7) L D 06/18/19 21:08 Hct 33.1 % (34.1-44.9) L 06/18/19 21:08 MCV 82.1 fl (79.4-94.8) D 06/18/19 21:08 MCH 25.1 pg (25.6-32.2) L 06/18/19 21:08 MCHC 30.5 g/dl (32.2-35.5) L 06/18/19 21:08 RDW Std Deviation 42.2 fL (36.4-46.3) 06/18/19 21:08 Plt Count 213 K/mm3 (182-369) 06/18/19 21:08 MPV 10.1 fl (9.4-12.3) 06/18/19 21:08 Neut % (Auto) 70.9 % (34.0-71.1) 06/18/19 21:08 Lymph % (Auto) 21.3 % (19.3-51.7) 06/18/19 21:08 [place] % (Auto) 6.3 % (4.7-12.5) 06/18/19 21:08 Eos % (Auto) 0.6 (0.7-5.8) L 06/18/19 21:08 Baso % (Auto) 0.3 % (0.1-1.2) 06/18/19 21:08 Neut # (Auto) 8.74 K/mm3 (1.56-6.13) H 06/18/19 21:08 Lymph # (Auto) 2.62 K/mm3 (1.18-3.74) 06/18/19 21:08 [place] # (Auto) 0.77 K/mm3 (0.24-0.36) H 06/18/19 21:08 Eos # (Auto) 0.07 K/mm3 (0.04-0.36) 06/18/19 21:08 Baso # (Auto) 0.04 K/mm3 (0.01-0.08) 06/18/19 21:08 RPR Non-reactive (NONREACTIVE) 06/18/19 21:08 - Allergies Allergies/Adverse Reactions: Allergies Allergy/AdvReac Type Severity Reaction Status Date / Time No Known Allergies Allergy Verified 06/18/19 20:43 - Anesthesia Plan Pre-Op Medication Ordered: None - Acknowledgements Anesthesia Type Planned: Epidural Pt an Appropriate Candidate for the Planned Anesthesia: Yes Alternatives and Risks of Anesthesia Discussed w Pt/Guardian: Yes Pt/Guardian Understands and Agrees with Anesthesia Plan: Yes PreAnesthesia Questionnaire - Past Health History Medical/Surgical History: Denies Medical/Surgical History 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 - SUBSTANCE USE Smoking Status *Q: Never Smoker Tobacco Use Within Last Twelve Months: No Second Hand Smoke Exposure: No Recreational Drug Use History: No - HOME MEDS Home Medications: Home Meds Pnv No.95/Ferrous Fum/Folic AC [ Tablet] 1 each PO DAILY 05/18/18 [ History] - CURRENT (IN HOUSE) MEDS Current Meds: Current Medications Acetaminophen (Tylenol) 650 mg PO Q4H PRN PRN Reason: Pain (Mild 1-3) and fever Calcium Carbonate/Glycine (Tums) 1,000 mg PO Q2H PRN PRN Reason: Indigestion Diphenhydramine HCl (Benadryl) 25 mg IVPUSH Q6H PRN PRN Reason: Itching Ephedrine Sulfate (Ephedrine Sulfate) 5 mg IVPUSH ASDIRECTED PRN PRN Reason: HYPOTENTSION Fentanyl (Sublimaze) 100 mcg EPIDUR Q3H PRN PRN Reason: Pain Last Admin: 06/18/19 22:29 Dose: 100 mcg Fentanyl/Bupivacaine HCl (Fentanyl/Bupivacaine/Ns 2 Mcg-0.125% 100 Ml) 0 ml EPIDUR CONTINUOUS PRN PRN Reason: Pain Last Admin: 06/18/19 22:29 Dose: 100 ml Lactated Ringer's (Ringers, Lactated) 1,000 mls @ 100 mls/hr IV ASDIRECTED DAYSI Last Admin: 06/18/19 22:24 Dose: 100 mls/hr Oxytocin/Lactated Ringer's (Pitocin In Lr 10 Units/1,000 Ml) 10 unit in 1,000 mls @ 12 mls/hr IV TITRATE DAYSI; Protocol Oxytocin/Lactated Ringer's (Pitocin In Lr 10 Units/1,000 Ml) 10 unit in 1,000 mls @ 100 mls/hr IV .CONTINUOUS DAYSI Nalbuphine HCl (Nubain) 10 mg IVPUSH Q2H PRN PRN Reason: Pain Ondansetron HCl (Zofran) 4 mg IVPUSH Q4H PRN PRN Reason: Nausea/Vomiting Sodium Chloride (Saline Flush) 10 ml FLUSH ASDIRECTED PRN PRN Reason: Keep Vein Open
--- NOTE | 2019-06-19 01:20 | PCM.LDHP ---
L&D History of Present Illness - General Date of Service: 06/19/19 Admit Problem/Dx: Patient Status Order with Admit Dx/Problem 06/18/19 20:44 Patient Status [ADT] Routine Admission Diagnosis/Problem Admission Diagnosis/Problem - History of Present Illness Introduction:: 29 year old at 38w6 d here in labor. PNC with myself complicated by history of gastric bypass and anemia. 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 Social & Family History - Family History Family Medical History: Noncontributory - Tobacco Use Smoking Status *Q: Never Smoker Second Hand Smoke Exposure: No - Caffeine Use Caffeine Use: Reports: None - Recreational Drug Use Recreational Drug Use: No H&P Review of Systems - Review of Systems: Review Of Systems: See Below General: Reports: No Symptoms HEENT: Reports: No Symptoms Pulmonary: Reports: No Symptoms Cardiovascular: Reports: No Symptoms Gastrointestinal: Reports: No Symptoms Genitourinary: Reports: No Symptoms Musculoskeletal: Reports: No Symptoms Skin: Reports: No Symptoms Psychiatric: Reports: No Symptoms Neurological: Reports: No Symptoms Hematologic/Lymphatic: Reports: No Symptoms Immunologic: Reports: No Symptoms L&D Exam - Exam Exam: See Below - Vital Signs Vital Signs: Last Vital Signs Temp 37.2 C 06/18/19 20:44 Pulse 78 06/18/19 20:44 Resp 14 06/18/19 20:44 BP 109/71 06/18/19 20:44 Pulse Ox 98 06/18/19 20:44 Weight: 87.861 kg - OB Specific Contraction Intensity: Moderate to Strong Movement: Active Heart Tones: Present Heart Rate (FHR) Variability: Moderate (6-25 bmp) Presentation: Vertex - Albright Score Albright Score Cervix Position: Midposition Albright Score Dilation: > 5 cm Albright Score 's Station: -2 - Exam General: Alert, Oriented HEENT: PERRLA, Conjunctiva Clear, EACs Clear, EOMI, Hearing Intact, Mucosa Moist & [place], Nares Patent, Normal Nasal Septum, Posterior Pharynx Clear, TMs Clear Neck: Supple, Trachea Midline Lungs: Clear to Auscultation, Normal Respiratory Effort Cardiovascular: Regular Rate, Regular Rhythm GI/Abdominal Exam: Normal Bowel Sounds, Soft, Non-Tender, No Organomegaly, No Distention, No Abnormal Bruit, No Mass, Pelvis Stable Rectal Exam: Normal Exam, Normal Rectal Tone Back Exam: Normal Inspection, Full Range of Motion Extremities: Normal Inspection, Normal Range of Motion, Non-Tender, No Pedal Edema, Normal Capillary Refill Skin: Warm, Dry, Intact Neurological: Cranial Nerves Intact, Reflexes Equal Bilateral Psychiatric: Alert, Normal Affect, Normal Mood - Patient Data Lab Results Last 24 hrs: Laboratory Results - last 24 hr 06/18/19 06/18/19 Range/Units 21:08 21:08 WBC 12.32 H (3.98-10.04) K/mm3 RBC 4.03 (3.98-5.22) M/mm3 Hgb 10.1 L D (11.2-15.7) gm/dl Hct 33.1 L (34.1-44.9) % MCV 82.1 D (79.4-94.8) fl MCH 25.1 L (25.6-32.2) pg MCHC 30.5 L (32.2-35.5) g/dl RDW Std Deviation 42.2 (36.4-46.3) fL Plt Count 213 (182-369) K/mm3 MPV 10.1 (9.4-12.3) fl Neut % (Auto) 70.9 (34.0-71.1) % Lymph % (Auto) 21.3 (19.3-51.7) % [place] % (Auto) 6.3 (4.7-12.5) % Eos % (Auto) 0.6 L (0.7-5.8) Baso % (Auto) 0.3 (0.1-1.2) % Neut # (Auto) 8.74 H (1.56-6.13) K/mm3 Lymph # (Auto) 2.62 (1.18-3.74) K/mm3 [place] # (Auto) 0.77 H (0.24-0.36) K/mm3 Eos # (Auto) 0.07 (0.04-0.36) K/mm3 Baso # (Auto) 0.04 (0.01-0.08) K/mm3 RPR Non-reactive (NONREACTIVE) Result Diagrams: 06/18/19 21:08 Problem List Initiated/Reviewed/Updated: Yes Orders Last 24hrs: Active Orders 24 hr Category Date Time Status Patient Status [ADT] Routine ADT 06/18/19 20:44 Active Activity as Tolerated [RC] PFP Care 06/18/19 20:44 Active Communication Order [RC] ASDIRECTED Care 06/18/19 20:44 Active Communication Order [RC] ASDIRECTED Care 06/18/19 22:15 Active Cooling Warming Measures [RC] ASDIRECTED Care 06/18/19 22:15 Active Heart Tones [RC] ASDIRECTED Care 06/18/19 20:44 Active Notify Provider [RC] ASDIRECTED Care 06/18/19 22:15 Active Notify Provider [RC] PFP Care 06/18/19 20:44 Active Notify Provider [RC] PRN Care 06/18/19 20:44 Active Oxygen Therapy [RC] ASDIRECTED Care 06/18/19 22:15 Active Peripheral IV Care [RC] . DIRECTED Care 06/18/19 20:44 Active Pulse Oximetry [RC] ASDIRECTED Care 06/18/19 22:15 Active Urinary Catheter Assessment [RC] ASDIRECTED Care 06/18/19 20:43 Active Vital Signs [RC] PER UNIT ROUTINE Care 06/18/19 20:44 Active Vital Signs [RC] Q1H Care 06/18/19 22:15 Active Regular Diet [DIET] Diet 06/18/19 Breakfast Active Acetaminophen [Tylenol] Med 06/18/19 20:43 Active 650 mg PO Q4H PRN Bupivacaine/fentaNYL/NS [fentaNYL/Bupivacaine/NS 2 MCG- Med 06/18/19 22:15 Active 0.125% 100 ML] 0 ml EPIDUR CONTINUOUS PRN Calcium Carbonate [Tums] Med 06/18/19 20:43 Active 1,000 mg PO Q2H PRN Lactated Ringers [Ringers, Lactated] 1,000 ml Med 06/18/19 20:45 Active IV ASDIRECTED Nalbuphine [Nubain] Med 06/18/19 20:43 Active 10 mg IVPUSH Q2H PRN Ondansetron [Zofran] Med 06/18/19 20:43 Active 4 mg IVPUSH Q4H PRN Oxytocin/Lactated Ringers [Pitocin in LR 10 Units/1,000 Med 06/18/19 20:45 Active ML] 10 unit in 1,000 ml IV .CONTINUOUS Oxytocin/Lactated Ringers [Pitocin in LR 10 Units/1,000 Med 06/18/19 20:45 Active ML] 10 unit in 1,000 ml IV TITRATE Sodium Chloride 0.9% [Saline Flush] Med 06/18/19 20:43 Active 10 ml FLUSH ASDIRECTED PRN diphenhydrAMINE [Benadryl] Med 06/18/19 22:15 Active 25 mg IVPUSH Q6H PRN ePHEDrine [ePHEDrine sulfate] Med 06/18/19 22:15 Active 5 mg IVPUSH ASDIRECTED PRN fentaNYL [Sublimaze] Med 06/18/19 22:15 Active 100 mcg EPIDUR Q3H PRN Electronic Heart Tones Ext w TOCO [WOMSER] Oth 06/18/19 20:44 Ordered Routine Electronic Heart Tones Internal [WOMSER] Per Unit Oth 06/18/19 20:44 Ordered Routine Peripheral IV Insertion Adult [OM.PC] Routine Oth 06/18/19 20:44 Ordered Resuscitation Status Routine Resus Stat 06/18/19 20:43 Ordered Medication Orders Acetaminophen (Tylenol) 650 mg PO Q4H PRN PRN Reason: Pain (Mild 1-3) and fever Calcium Carbonate/Glycine (Tums) 1,000 mg PO Q2H PRN PRN Reason: Indigestion Diphenhydramine HCl (Benadryl) 25 mg IVPUSH Q6H PRN PRN Reason: Itching Ephedrine Sulfate (Ephedrine Sulfate) 5 mg IVPUSH ASDIRECTED PRN PRN Reason: HYPOTENTSION Fentanyl (Sublimaze) 100 mcg EPIDUR Q3H PRN PRN Reason: Pain Last Admin: 06/18/19 22:29 Dose: 100 mcg Fentanyl/Bupivacaine HCl (Fentanyl/Bupivacaine/Ns 2 Mcg-0.125% 100 Ml) 0 ml EPIDUR CONTINUOUS PRN PRN Reason: Pain Last Admin: 06/18/19 22:29 Dose: 100 ml Lactated Ringer's (Ringers, Lactated) 1,000 mls @ 100 mls/hr IV ASDIRECTED DAYSI Last Admin: 06/18/19 23:30 Dose: 100 mls/hr Infusion: 06/18/19 23:30 Dose: 100 mls/hr Admin: 06/18/19 22:24 Dose: 100 mls/hr Infusion: 06/18/19 22:24 Dose: 100 mls/hr Admin: 06/18/19 22:16 Dose: 100 mls/hr Infusion: 06/18/19 22:16 Dose: 100 mls/hr Admin: 06/18/19 22:15 Dose: 100 mls/hr Oxytocin/Lactated Ringer's (Pitocin In Lr 10 Units/1,000 Ml) 10 unit in 1,000 mls @ 12 mls/hr IV TITRATE DAYSI; Protocol Oxytocin/Lactated Ringer's (Pitocin In Lr 10 Units/1,000 Ml) 10 unit in 1,000 mls @ 100 mls/hr IV .CONTINUOUS DAYSI Nalbuphine HCl (Nubain) 10 mg IVPUSH Q2H PRN PRN Reason: Pain Ondansetron HCl (Zofran) 4 mg IVPUSH Q4H PRN PRN Reason: Nausea/Vomiting Sodium Chloride (Saline Flush) 10 ml FLUSH ASDIRECTED PRN PRN Reason: Keep Vein Open Assessment/Plan Comment:: 29 year old here in active labor. PNC without complications.
[2019-06-19] MEDS: Lactated Ringers 1,000 ML IV SCH (02:58)
--- NOTE | 2019-06-19 03:39 | PCM.SN.2 ---
- Free Text/Narrative Note: 0310 Called into room 29 for epidural that had got disconnected. Reconnected with sterile technique and new connector and filter. 10ml of 0.25% bupivacaine bolus given. VSS no complains of. Out of room at 0340.
--- NOTE | 2019-06-19 05:03 | PCM.SN.2 ---
- Free Text/Narrative Note: Stage I - Patient presented in active labor. Progressed to complete with overall reassuring heart tones. Stage II - of viable female, weight 7#10 oz at 0434 with APGARS 8/9. Head delivered in controlled manner over intact perineum, body and shoulders atraumatically. Vigorous baby to maternal abdomen. Cord clamped and cut. Cord blood collected. Stage III - of intact placenta. 3vc. No laceration. EBL 300.
[2019-06-19] MEDS ORDERED: Docusate Sodium 100 MG Cap PO PRN (05:14)
[2019-06-19] MEDS ORDERED: Witch Hazel Medicated Pads 40/Jar TOP PRN (05:14)
[2019-06-19] MEDS ORDERED: Benzocaine/Menthol 20%-0.5% Spray 56 GM Canister TOP PRN (05:14)
[2019-06-19] MEDS: Ibuprofen 600 MG Tab PO PRN (05:49)
--- NOTE | 2019-06-19 08:47 | PCM48HPAN ---
Post Anesthesia Note - EVALUATION WITHIN 48HRS OF ANESTHETIC Vital Signs in Normal Range: Yes Patient Participated in Evaluation: Yes Respiratory Function Stable: Yes Airway Patent: Yes Cardiovascular Function Stable: Yes Hydration Status Stable: Yes Pain Control Satisfactory: Yes Nausea and Vomiting Control Satisfactory: Yes Mental Status Recovered: Yes Vital Signs: Last Vital Signs Temp 99 F 06/18/19 20:44 Pulse 78 06/18/19 20:44 Resp 14 06/18/19 20:44 BP 109/71 06/18/19 20:44 Pulse Ox 98 06/18/19 20:44 - COMMENTS/OBSERVATIONS Free Text/Narrative:: Patient is on her day 1. Stated understanding about possible backaches following epidural anesthesia. Mentions having some minor back soreness at this time. Explanation given about importance of avoiding back straining. Denies any headache or lightheadedness at this time. Comfortable now. Ambulating, no difficulty urinating
[2019-06-20] MEDS: Ibuprofen 600 MG Tab PO PRN (02:54)
--- NOTE | 2019-06-20 06:38 | PCM.PNPP ---
- General Info Date of Service: 06/20/19 Functional Status: Reports: Pain Controlled, Tolerating Diet, Ambulating, Urinating - Review of Systems General: Reports: No Symptoms Pulmonary: Reports: No Symptoms Cardiovascular: Reports: No Symptoms Gastrointestinal: Reports: No Symptoms Genitourinary: Reports: No Symptoms Musculoskeletal: Reports: No Symptoms Neurological: Reports: No Symptoms Psychiatric: Reports: No Symptoms - Patient Data Vital Signs - Most Recent: Last Vital Signs Temp 36.6 C 06/19/19 20:23 Pulse 70 06/19/19 20:23 Resp 16 06/19/19 20:23 BP 100/62 06/19/19 20:23 Pulse Ox 99 06/19/19 20:23 Weight - Most Recent: 87.861 kg I&O - Last 24 Hours: Intake & Output 06/19/19 06/19/19 06/20/19 14:59 22:59 06:59 Intake Total 0 Balance 0 Med Orders - Current: Current Medications Benzocaine/Menthol (Dermoplast Pain Relief [place]) 0 gm TOP ASDIRECTED PRN PRN Reason: Perineal Comfort Measure Last Admin: 06/19/19 05:50 Dose: 1 canister Docusate Sodium (Colace) 100 mg PO BID PRN PRN Reason: Constipation Ibuprofen (Motrin) 600 mg PO Q6H PRN PRN Reason: Mild pain or fever Last Admin: 06/20/19 02:54 Dose: 600 mg Measles/Mumps/Rubella Vaccine Live (M-M-R Ii Vaccine) 0.5 ml SUBCUT .ONCE ONE Stop: 06/20/19 08:01 Witheriberto Irvingel (Tucks) 1 pad TOP ASDIRECTED PRN PRN Reason: Pain Last Admin: 06/19/19 05:50 Dose: 1 tub Discontinued Medications Acetaminophen (Tylenol) 650 mg PO Q4H PRN PRN Reason: Pain (Mild 1-3) and fever Bupivacaine HCl (Sensorcaine-Mpf 0.25%) 20 ml .ROUTE .STK-MED ONE Stop: 06/18/19 00:01 Calcium Carbonate/Glycine (Tums) 1,000 mg PO Q2H PRN PRN Reason: Indigestion Diphenhydramine HCl (Benadryl) 25 mg IVPUSH Q6H PRN PRN Reason: Itching Ephedrine Sulfate (Ephedrine Sulfate) 5 mg IVPUSH ASDIRECTED PRN PRN Reason: HYPOTENTSION Fentanyl (Sublimaze) 100 mcg EPIDUR Q3H PRN PRN Reason: Pain Last Admin: 06/18/19 22:29 Dose: 100 mcg Fentanyl/Bupivacaine HCl (Fentanyl/Bupivacaine/Ns 2 Mcg-0.125% 100 Ml) 0 ml EPIDUR CONTINUOUS PRN PRN Reason: Pain Last Admin: 06/18/19 22:29 Dose: 100 ml Lactated Ringer's (Ringers, Lactated) 1,000 mls @ 100 mls/hr IV ASDIRECTED DAYSI Last Admin: 06/19/19 02:58 Dose: 100 mls/hr Oxytocin/Lactated Ringer's (Pitocin In Lr 10 Units/1,000 Ml) 10 unit in 1,000 mls @ 12 mls/hr IV TITRATE DAYSI; Protocol Last Admin: 06/19/19 02:58 Dose: 2 munits/min, 12 mls/hr Oxytocin/Lactated Ringer's (Pitocin In Lr 10 Units/1,000 Ml) 10 unit in 1,000 mls @ 100 mls/hr IV .CONTINUOUS DAYSI Nalbuphine HCl (Nubain) 10 mg IVPUSH Q2H PRN PRN Reason: Pain Ondansetron HCl (Zofran) 4 mg IVPUSH Q4H PRN PRN Reason: Nausea/Vomiting Sodium Chloride (Saline Flush) 10 ml FLUSH ASDIRECTED PRN PRN Reason: Keep Vein Open - Interaction Disposition, : [place] in Room with Family Interaction: Holding Infant Feeding: Breastfed ; Nursed Well Support Person: - Recovery Exam Fundal Tone: Firm Fundal Level: 1 Fingerbreadths Below Umbilicus Fundal Placement: Midline Lochia Amount: Scant Lochia Color: Rubra/Red Perineum Description: Intact, Minimal Bruising/Swelling Episiotomy/Laceration: Approximated Bladder Status: Voiding Urinary Elimination: Voided - Exam General: Alert, Oriented, Cooperative GI/Abdominal Exam: Soft, Non-Tender Extremities: Normal Inspection Skin: Warm, Dry, Intact - Problem List & Annotations (1) Vaginal delivery SNOMED Code(s): 133652477 Code(s): O80 - ENCOUNTER FOR FULL-TERM UNCOMPLICATED DELIVERY Status: Acute - Problem List Review Problem List Initiated/Reviewed/Updated: Yes - Assessment Assessment:: PPD#1 - Plan Plan:: Routine cares Breast feeding Discharge home today
--- NOTE | 2019-06-20 06:39 | PCM.DCSUM1 ---
Discharge Summary - Discharge Data Discharge Date: 06/20/19 Discharge Disposition: Home, Self-Care 01 Condition: Good - Referral to Home Health Primary Care Physician: Sneha Da Silva MD - Patient Summary/Data Complications: None Consults: None Recommended Follow-up Testing/Procedures: Follow up in 3 weeks for check Hospital Course: 29 y/o at 38 6/7 wk who was admitted in labor. Underwent an uncomplicated . SEe delivery note. did well and was discharged home on PPD#1 - Patient Instructions Diet: Regular Diet as Tolerated Activity: As Tolerated Activity, Other: Pelvic rest for 6 weeks Driving: May Drive Today Showering/Bathing: May Shower Showering/Bathing, Other: May Bathe Notify Provider of: Fever, Increased Pain, Swelling and Redness, Drainage, Nausea and/or Vomiting - Discharge Plan *PRESCRIPTION DRUG MONITORING PROGRAM REVIEWED*: No *COPY OF PRESCRIPTION DRUG MONITORING REPORT IN PATIENT LUIZ: No Home Medications: Home Meds Pnv No.95/Ferrous Fum/Folic AC [ Tablet] 1 each PO DAILY 05/18/18 [ History] Ibuprofen [Motrin] 600 mg PO Q6H PRN tablet 06/20/19 [Rx] Patient Handouts: Care After Vaginal Delivery Referrals: Sneha Da Silva MD [Primary Care Provider] - (3 weeks check - can be telehealth) - Discharge Summary/Plan Comment DC Time >30 min.: No - Patient Data Vitals - Most Recent: Last Vital Signs Temp 36.6 C 06/19/19 20:23 Pulse 70 06/19/19 20:23 Resp 16 06/19/19 20:23 BP 100/62 06/19/19 20:23 Pulse Ox 99 06/19/19 20:23 Weight - Most Recent: 87.861 kg I&O - Last 24 hours: Intake & Output 06/19/19 06/19/19 06/20/19 14:59 22:59 06:59 Intake Total 0 Balance 0 Med Orders - Current: Current Medications Benzocaine/Menthol (Dermoplast Pain Relief [place]) 0 gm TOP ASDIRECTED PRN PRN Reason: Perineal Comfort Measure Last Admin: 06/19/19 05:50 Dose: 1 canister Docusate Sodium (Colace) 100 mg PO BID PRN PRN Reason: Constipation Ibuprofen (Motrin) 600 mg PO Q6H PRN PRN Reason: Mild pain or fever Last Admin: 06/20/19 02:54 Dose: 600 mg Measles/Mumps/Rubella Vaccine Live (M-M-R Ii Vaccine) 0.5 ml SUBCUT .ONCE ONE Stop: 06/20/19 08:01 Rafi Read (Tucks) 1 pad TOP ASDIRECTED PRN PRN Reason: Pain Last Admin: 06/19/19 05:50 Dose: 1 tub Discontinued Medications Acetaminophen (Tylenol) 650 mg PO Q4H PRN PRN Reason: Pain (Mild 1-3) and fever Bupivacaine HCl (Sensorcaine-Mpf 0.25%) 20 ml .ROUTE .STK-MED ONE Stop: 06/18/19 00:01 Calcium Carbonate/Glycine (Tums) 1,000 mg PO Q2H PRN PRN Reason: Indigestion Diphenhydramine HCl (Benadryl) 25 mg IVPUSH Q6H PRN PRN Reason: Itching Ephedrine Sulfate (Ephedrine Sulfate) 5 mg IVPUSH ASDIRECTED PRN PRN Reason: HYPOTENTSION Fentanyl (Sublimaze) 100 mcg EPIDUR Q3H PRN PRN Reason: Pain Last Admin: 06/18/19 22:29 Dose: 100 mcg Fentanyl/Bupivacaine HCl (Fentanyl/Bupivacaine/Ns 2 Mcg-0.125% 100 Ml) 0 ml EPIDUR CONTINUOUS PRN PRN Reason: Pain Last Admin: 06/18/19 22:29 Dose: 100 ml Lactated Ringer's (Ringers, Lactated) 1,000 mls @ 100 mls/hr IV ASDIRECTED DAYSI Last Admin: 06/19/19 02:58 Dose: 100 mls/hr Oxytocin/Lactated Ringer's (Pitocin In Lr 10 Units/1,000 Ml) 10 unit in 1,000 mls @ 12 mls/hr IV TITRATE DAYSI; Protocol Last Admin: 06/19/19 02:58 Dose: 2 munits/min, 12 mls/hr Oxytocin/Lactated Ringer's (Pitocin In Lr 10 Units/1,000 Ml) 10 unit in 1,000 mls @ 100 mls/hr IV .CONTINUOUS DAYSI Nalbuphine HCl (Nubain) 10 mg IVPUSH Q2H PRN PRN Reason: Pain Ondansetron HCl (Zofran) 4 mg IVPUSH Q4H PRN PRN Reason: Nausea/Vomiting Sodium Chloride (Saline Flush) 10 ml FLUSH ASDIRECTED PRN PRN Reason: Keep Vein Open
[2019-06-20] MEDS ORDERED: Measles, Mumps & Rubella Vaccine 0.5 ML SDV SUBCUT ONE (08:00)
== END 2019-06-20 09:30 | disposition home or self-care (01) | DRG 560 ==
LOC: JD.OB 20:02 → JD.OBCHECK 20:02 → JD.OB 20:44 → OBSVTOIN 06-19 04:34 → JD.OB 06-19 04:34
PROVIDERS: ADMIT Obstetrics & Gynecology; ATTEND Obstetrics & Gynecology
PROC: 10E0XZZ Delivery of Products of Conception, External Approach (ICD-10-PCS; principal; 2019-06-19)
PROC: 3E0R3BZ Introduction of Anesthetic Agent into Spinal Canal, Percutaneous Approach (ICD-10-PCS; 2019-06-19)
DX: O99.02 Anemia complicating childbirth (principal); Z3A.38 38 weeks gestation of pregnancy; Z37.0 Single live birth; Z98.84 Bariatric surgery status
CPT/HCPCS: 36415; 51701; 59025; 59409; 85025; 86592; A9270-GY; J2590; J3010; J3490; J7120